=== PATIENT | male | born 1935 ===

== ENCOUNTER 2018-07-18 13:27 | Emergency (ER) | payer MEDICARE, MEDICAID ==
--- NOTE | 2018-07-18 14:13 | C.PDOC ---
History Of Present Illness 83yo male, with history of hypertension, COPD, comes to ER for evaluation after a mechanical fall, occurring prior to arrival. Patient states he was sitting on his bed and when he got up to grab his cane, he fell. He is a poor historian and is unsure if he hit his head, lost consciousness or was dizzy at onset of fall. Patient currently complains of left upper quadrant pain, left sided ribs pain and a headache. He states he takes Aspirin daily and denies any other blood thinner use. Of note, patient states he was able to ambulate and get dressed after the fall. He denies any chest pain, shortness of breath or dizziness at th is time. PMD: - HPI Time Seen by Provider: 07/18/18 13:30 Chief Complaint (Nursing): Rib Injury History Per: Patient History/Exam Limitations: no limitations Onset/Duration Of Symptoms: Mins Injury Occurred (Timing): Just Before Arrival Location Of Injury: Left: Abdomen, Chest (ribs) Additional History Per: Patient Past Medical History Reviewed: Historical Data, Nursing Documentation, Vital Signs Vital Signs: Last Vital Signs Temp 97.9 F 07/18/18 13:30 Pulse 68 07/18/18 13:30 Resp 16 07/18/18 13:30 BP 110/61 07/18/18 13:30 Pulse Ox 95 07/18/18 13:30 - Medical History PMH: Anxiety, Benign Prostatic Hyperplasia, COPD, HTN, Hyperlipidemia Denies: Chronic Kidney Disease Surgical History: No Surg Hx Family History: States: No Known Family Hx - Social History Hx Alcohol Use: No Hx Substance Use: No - Immunization History Hx Tetanus Toxoid Vaccination: No Hx Influenza Vaccination: No Hx Pneumococcal Vaccination: No Review Of Systems Except As Marked, All Systems Reviewed And Found Negative. Cardiovascular: Positive for: Other (left ribs pain). Negative for: Chest Pain Respiratory: Negative for: Shortness of Breath Gastrointestinal: Positive for: Abdominal Pain (left upper quadrant) Neurological: Negative for: Headache, Dizziness Physical Exam - Physical Exam Appears: Non-toxic, No Acute Distress Skin: Normal Color, Warm, Dry Head: Atraumatic, Normacephalic, No Tenderness, No Swelling, No Abrasion, No Laceration Eye(s): bilateral: Normal Inspection, PERRL, EOMI Ear(s): Bilateral: Normal (no bleeding) Nose: Normal, No Deformity, No Tenderness Neck: Normal ROM, No Midline Cervical Tenderness, No Paracervical Tenderness, Supple Chest: Symmetrical, Tenderness (left ribs tender to palpation) Cardiovascular: Rhythm Regular Respiratory: Normal Breath Sounds Gastrointestinal/Abdominal: Soft, Tenderness (left upper quadrant tenderness), No Mass, No Guarding, No Rebound Back: Normal Inspection, No CVA Tenderness, No Vertebral Tenderness, No Paraspinal Tenderness Extremity: Normal ROM, No Pedal Edema Extremity: Bilateral: Atraumatic, Hips Non-Tender, Pelvis-Stable Pulses: Left Radial: Normal, Right Radial: Normal, Left Dorsalis Pedis: Normal, Right Dorsalis Pedis: Normal Neurological/Psych: Oriented x3, Normal Speech, Normal Cognition, Normal Motor, Normal Sensation ED Course And Treatment - Laboratory Results Result Diagrams: 07/18/18 14:42 ECG: Interpreted By De ([id number]), Viewed By De ECG Rhythm: Sinus Rhythm, 1st Degree HB Interpretation Of ECG: NH 266; Normal QTC. No PVC. No ST elevation Rate From EC O2 Sat by Pulse Oximetry: 95 (RA) Pulse Ox Interpretation: Normal - CT Scan/US CT C-Spine Other Rad Studies (CT/US): Read By Radiologist CT/US Interpretation: FINDINGS: VERTEBRAE: No fracture. Normal alignment. No destructive bony lesion. DISCS/SPINAL CANAL/NEURAL FORAMINA: No significant central canal or neural foraminal stenosis. Discs heights are grossly preserved. PARASPINAL SOFT TISSUES: Unremarkable. OTHER FINDINGS: Dilated lower cervical and upper thoracic esophagus of uncertain etiology, a significance or acuity. IMPRESSION: No acute findings related to/ accounting for the clinical presentation. Additional benign and/or incidental findings described above. CT Chest/Abdomen/Pelvis Other Rad Studies (CT/US): Read By Radiologist CT/US Interpretation: FINDINGS: CT CHEST WITH CONTRAST: LUNGS: Clear. No nodule, mass or consolidation. MEDIASTINUM: Atherosclerotic calcification and mural plaque present. Findings are seen throughout the aorta which is non aneurysmal. No aortic dissection. Cardiomegaly, interstitial edema of manifest through increased interstitial markings and thickening of interlobular septa. No visible pericardial effusion. LYMPH NODES: Unremarkable. PLEURA: Unremarkable. No pneumothorax. No pleural fluid. BONES: Unremarkable. OTHER FINDINGS: Dilated esophagus without focal mass or obstructing lesion. The findings primarily affect the mid and upper esophagus. CT ABDOMEN AND PELVIS: LIVER: Unremarkable. No gross lesion or ductal dilatation. GALLBLADDER AND BILE DUCTS: Cholelithiasis without CT evidence of acute cholecystitis. PANCREAS: Unremarkable. No gross lesion or ductal dilatation. SPLEEN: Unremarkable. Incidental finding(s): Accessory splenule is a identified. Normal variant. ADRENALS: Unremarkable. No mass. KIDNEYS AND URETERS: Unremarkable. No hydronephrosis. No solid mass. VASCULATURE: Atherosclerotic calcification and mural plaque present. Findings are seen throughout the aorta. No visible dissection no aortic aneurysm. BOWEL: Diverticulosis without an acute inflammatory component or other associated pathologic process. APPENDIX: No abnormalities to suggest acute appendicitis. No right lower quadrant inflammatory processes identified. PERITONEUM: Unremarkable. No free fluid. No free air. LYMPH NODES: Unremarkable. No enlarged lymph nodes. BLADDER: Unremarkable. REPRODUCTIVE: Findings suggest prior trans urethral resection of the prostate. BONES: L1 compression deformity. Findings were seen on a plain film radiograph of the abdomen 06/06/2018. OTHER FINDINGS: None. IMPRESSION: No acute findings related to/ accounting for the clinical presentation. Cardiomegaly/mild CHF. Cholelithiasis without CT evidence of acute cho lecystitis. Additional benign/incidental findings noted. CT Head Other Rad Studies (CT/US): Read By Radiologist CT/US Interpretation: FINDINGS: HEMORRHAGE: No intracranial hemorrhage. BRAIN: No mass effect or edema. Age related senescent changes. VENTRICLES: Unremarkable. No hydrocephalus. CALVARIUM: Unremarkable. PARANASAL SINUSES: Chronic ethmoid air cell disease. MASTOID AIR CELLS: Unremarkable as visualized. No inflammatory changes. OTHER FINDINGS: None. IMPRESSION: No acute intracranial abnormalities. No significant findings to account for the clinical presentation. Medical Decision Making Medical Decision Making: Impression: 83yo male, comes to ER s/p mechanical fall r/o rib fracture Plan: -- CT Head w/o contrast -- CMP -- CT Chest, Abdomen and Pelvis Results discussed with patient. Stable for discharge home at this time. Advised acetaminophen or ibuprofen for pain. Return for any new or worsening symptoms. Disposition - Disposition Disposition: HOME/ ROUTINE Disposition Time: 19:00 Condition: STABLE Additional Instructions: RYLEY RIVERA, thank you for letting us take care of you today. Your provider was Suzanne Peoples MD and you were treated for LT FLANK PAIN S/P FALL. The emergency medical care you received today was directed at your acute symptoms. If you were prescribed any medication, please fill it and take as directed. It may take several days for your symptoms to resolve. Return to the Emergency Department if your symptoms worsen, do not improve, or if you have any other problems. Please contact your doctor or call one of the physicians/clinics you have been referred to that are listed on the Patient Visit Information form that is included in your discharge packet. Bring any paperwork you were given at discharge with you along with any medications you are taking to your follow up visit. Our treatment cannot replace ongoing medical care by a primary care prov ider outside of the emergency department. Thank you for allowing the [facility] team to be part of your care today. If you had an X-Ray or CT scan: A Radiologist will review the ED reading if any change in treatment is needed we will contact you. If you had a blood, urine, or wound culture: It will take several days for the results, if any change in treatment is needed we will contact you. If you had an STI test: It will take 48 hours for the results. Please call after 1 week if you have not heard back. Instructions: Bruised Rib (DC) Forms: [employer] (Greek) - Clinical Impression Clinical Impression: Contusion of rib on left side - Scribe Statement The provider has reviewed the documentation as recorded by the Ally Verma Provider Attestation: All medical record entries made by the Ally were at my direction and personally dictated by me. I have reviewed the chart and agree that the record accurately reflects my personal performance of the history, physical exam, medical decision making, and the department course for this patient. I have also personally directed, reviewed, and agree with the discharge instructions and disposition.
[2018-07-18 14:57] LABS: ALB/GLOB RATIO 1.2 (1.0-2.1); ALBUMIN 3.5 g/dL (3.5-5.0); CALCIUM 8.5 mg/dl (8.6-10.4)
[2018-07-18] MEDS ORDERED: Iodixanol 320 MG/ML 100 ML BOTTLE IV ONE (16:22)
--- NOTE | 2018-07-18 17:27 | CT ---
Date of service: 07/18/2018 PROCEDURE: CT HEAD WITHOUT CONTRAST. HISTORY: fall COMPARISON: None available. TECHNIQUE: Axial computed tomography images were obtained through the head/brain without intravenous contrast. Supplemental Coronal and Sagittal projections created and reviewed. Radiation dose: Total exam DLP = 1105.68 mGy-cm. This CT exam was performed using one or more of the following dose reduction techniques: Automated exposure control, adjustment of the mA and/or kV according to patient size, and/or use of iterative reconstruction technique. FINDINGS: HEMORRHAGE: No intracranial hemorrhage. BRAIN: No mass effect or edema. Age related senescent changes. VENTRICLES: Unremarkable. No hydrocephalus. CALVARIUM: Unremarkable. PARANASAL SINUSES: Chronic ethmoid air cell disease. MASTOID AIR CELLS: Unremarkable as visualized. No inflammatory changes. OTHER FINDINGS: None. IMPRESSION: No acute intracranial abnormalities. No significant findings to account for the clinical presentation.
--- NOTE | 2018-07-18 17:32 | CT ---
Date of service: 07/18/2018 PROCEDURE: CT Cervical Spine without contrast HISTORY: fall COMPARISON: None available. TECHNIQUE: Axial computed tomography images were obtained of the cervical spine without the use of intravenous contrast. Coronal and sagittal reformatted images were created and reviewed. Radiation dose: Total exam DLP = 543.70 mGy-cm. This CT exam was performed using one or more of the following dose reduction techniques: Automated exposure control, adjustment of the mA and/or kV according to patient size, and/or use of iterative reconstruction technique. FINDINGS: VERTEBRAE: No fracture. Normal alignment. No destructive bony lesion. DISCS/SPINAL CANAL/NEURAL FORAMINA: No significant central canal or neural foraminal stenosis. Discs heights are grossly preserved. PARASPINAL SOFT TISSUES: Unremarkable. OTHER FINDINGS: Dilated lower cervical and upper thoracic esophagus of uncertain etiology, a significance or acuity. IMPRESSION: No acute findings related to/ accounting for the clinical presentation. Additional benign and/or incidental findings described above.
--- NOTE | 2018-07-18 17:42 | CT ---
Date of service: 07/18/2018 PROCEDURE: CT Chest, Abdomen and Pelvis with intravenous contrast HISTORY: Posttraumatic left flank pain COMPARISON: None available. TECHNIQUE: IV dose administered: 100 cc Visipaque 320. Radiation dose: Total exam DLP = 1684.24 mGy-cm. This CT exam was performed using one or more of the following dose reduction techniques: Automated exposure control, adjustment of the mA and/or kV according to patient size, and/or use of iterative reconstruction technique. FINDINGS: CT CHEST WITH CONTRAST: LUNGS: Clear. No nodule, mass or consolidation. MEDIASTINUM: Atherosclerotic calcification and mural plaque present. Findings are seen throughout the aorta which is non aneurysmal. No aortic dissection. Cardiomegaly, interstitial edema of manifest through increased interstitial markings and thickening of interlobular septa. No visible pericardial effusion. LYMPH NODES: Unremarkable. PLEURA: Unremarkable. No pneumothorax. No pleural fluid. BONES: Unremarkable. OTHER FINDINGS: Dilated esophagus without focal mass or obstructing lesion. The findings primarily affect the mid and upper esophagus. CT ABDOMEN AND PELVIS: LIVER: Unremarkable. No gross lesion or ductal dilatation. GALLBLADDER AND BILE DUCTS: Cholelithiasis without CT evidence of acute cholecystitis. PANCREAS: Unremarkable. No gross lesion or ductal dilatation. SPLEEN: Unremarkable. Incidental finding(s): Accessory splenule is a identified. Normal variant ADRENALS: Unremarkable. No mass. KIDNEYS AND URETERS: Unremarkable. No hydronephrosis. No solid mass. VASCULATURE: Atherosclerotic calcification and mural plaque present. Findings are seen throughout the aorta. No visible dissection no aortic aneurysm. BOWEL: Diverticulosis without an acute inflammatory component or other associated pathologic process. APPENDIX: No abnormalities to suggest acute appendicitis. No right lower quadrant inflammatory processes identified. PERITONEUM: Unremarkable. No free fluid. No free air. LYMPH NODES: Unremarkable. No enlarged lymph nodes. BLADDER: Unremarkable. REPRODUCTIVE: Findings suggest prior trans urethral resection of the prostate. BONES: L1 compression deformity. Findings were seen on a plain film radiograph of the abdomen 06/06/2018. OTHER FINDINGS: None. IMPRESSION: No acute findings related to/ accounting for the clinical presentation. Cardiomegaly/mild CHF. Cholelithiasis without CT evidence of acute cholecystitis. Additional benign/incidental findings noted.
[2018-07-18 19:39] VITALS: BP 120/57; PULSE 73; RESP 16; TEMP 97.5
[2018-07-19 00:11] VITALS: O2SAT 95
--- NOTE | 2018-07-21 13:05 | CARD ---
APPROVED REPORT Date of service: 07/18/2018 EKG Measurement Heart [id number] <Conclusion> Sinus rhythm with 1st degree AV block Minimal voltage criteria for LVH, may be normal variant Borderline ECG
== END 2018-07-18 19:39 | disposition home or self-care (01) ==
LOC: C.ER 13:27
DX: S20.212A Contusion of left front wall of thorax, initial encounter (principal); W19.XXXA Unspecified fall, initial encounter; J44.9 Chronic obstructive pulmonary disease, unspecified; I50.9 Heart failure, unspecified; I10 Essential (primary) hypertension; E78.5 Hyperlipidemia, unspecified
CPT/HCPCS: 70450; 71260; 72125; 74177; 80053; 82948; 93005; 99284; Q9967